=== PATIENT | female | born 1960 | race Caucasian/White ===

== ENCOUNTER 2019-08-31 08:32 | Outpatient (CLI) | payer MEDICARE, SELFPAY ==
--- NOTE | 2019-08-31 08:35 | ECG_ITS ---
Measurements Intervals [place] Rate: 60 P: 50 [place]: 166 QRS: 4 QRSD: 108 T: 92 QT: 411 QTc: 411 Interpretive Statements SINUS RHYTHM LOW QRS VOLTAGE IN PRECORDIAL LEADS BORDERLINE R WAVE PROGRESSION, ANTERIOR LEADS BORDERLINE ST-T WAVE ABNORMALITY- HIGH LATERAL LEADS BASELINE ARTIFACT- I, II, AVR, AVF BORDERLINE ECG Electronically Signed On 08-31-2019 9:17:11 CDT by Franck Tineo D.O.
[2019-08-31 09:17] LABS: Blood Urea Nitrogen 14 mg/dL (7-17); Calcium 8.7 mg/dL (8.4-10.2); Carbon Dioxide 27 mmol/L (22-30); Chloride 103 mmol/L (98-107); Estimated Glomerular Filt Rate 50; Glucose 279 mg/dL (65-105); Potassium 4.1 mmol/L (3.4-5.0); Sodium 137 mmol/L (137-145)
== END 2019-08-31 08:33 | disposition home or self-care (01) ==
LOC: ANHSURGERY 08:35
PROVIDERS: Anesthesiology; PCP Pediatrics; Visit Provider Surgery
DX: E11.9 Type 2 diabetes mellitus without complications (principal); R94.31 Abnormal electrocardiogram [ECG] [EKG]
CPT/HCPCS: 36415; 80048; 93005

== ENCOUNTER 2019-09-04 | Outpatient (CLI) | payer MEDICARE, SELFPAY ==
[2019-09-04 17:13] LABS: SARS-CoV-2 RNA PCR Negative
== END 2019-09-04 00:01 | disposition home or self-care (01) ==
LOC: ANHCOVIDDT
PROVIDERS: PCP Pediatrics; Visit Provider Surgery
DX: Z01.812 Encounter for preprocedural laboratory examination (principal); Z11.59 Encounter for screening for other viral diseases
CPT/HCPCS: 87635; C9803; U0003

== ENCOUNTER 2019-09-06 00:45 | Day surgery (SDC) | payer MEDICARE, SELFPAY ==
[2019-08-28 15:34] VITALS: BMI 29.2
--- NOTE | 2019-09-04 16:30 | PM.SD ---
Same Day Admit/Disch: HPI History of Present Illness Chief complaint: Right Axillary Mass Narrative: Stefani Church is a 59 year old female who was seen in the office for right axillary mass. This was initially thought to be in the upper outer quadrant of the breast. She underwent mammograms of the breasts which were negative. She had an ultrasound of the upper outer quadrant of the right breast which showed a 4 cm lipoma. This has been painful for her and she would like to have it removed. She was seen in the office and by palpation has a lipoma consistent with the ultrasound findings. She is taken to surgery now for excision. [facility] Past Medical History Medical History (Updated 09/06/19 @ 07:50 by John Arriola MD) Anxiety Back pain Blood clot in vein Chronic anticoagulation COPD (chronic obstructive pulmonary disease) COPD (chronic obstructive pulmonary disease) Depression Diabetes DM type 2 (diabetes mellitus, type 2) Fibromyalgia Gastroesophageal reflux disease GERD (gastroesophageal reflux disease) History of blood clots History of diabetes mellitus, type I History of pulmonary embolism HTN (hypertension) Hx of myocardial infarction Hypercholesterolemia Hypothyroidism Mass of axilla EMANUEL (obstructive sleep apnea) CPAP W O2 at 2L HS Pulmonary embolism 05/2009,07/2016 Surgical History Surgical History (Updated 09/06/19 @ 07:50 by John Arriola MD) H/O right heart catheterization 2006 H/O tubal ligation H/O: hysterectomy 2004 History of colonoscopy 2015,2019 History of endoscopy 2019 History of pituitary surgery 2010 Hx of neck surgery 2005 Hx of spinal surgery 4-C5 FUSION S/P excision of lipoma 6x8 abdominal Family History Family History Grandparent Carcinoma of colon Unknown Diabetes mellitus Social History Social History Smoking status: Former smoker Smoking end date: 03/15/79 Alcohol intake: current Substance use: never Gender identity (if verbalized by the patient): Female Same Day Admit/Disch: Med Pre-admit Medications Home Medications Medication Instructions Recorded Confirmed Type albuterol sulfate 2.5 mg INHALATION Q4-6H PRN 07/24/19 09/06/19 History albuterol sulfate 90 mcg/actuation 1 inhalation INHALATION Q4-6H PRN 07/24/19 09/06/19 History breath activated powder inhaler alprazolam 0.25 mg tablet 0.25 mg PO DIRECTED PRN 07/24/19 09/06/19 History benzonatate 100 mg capsule 100 mg PO TID 07/24/19 09/06/19 History blood sugar diagnostic #10 each 07/24/19 07/24/19 History cholecalciferol (vitamin D3) 50 50 mcg PO DAILY 07/24/19 09/06/19 History mcg (2,000 unit) capsule cyclobenzaprine 5 mg tablet 5 mg PO TID PRN 07/24/19 09/06/19 History desmopressin 0.1 mg tablet 0.1 mg PO BID 07/24/19 09/06/19 History ergocalciferol (vitamin D2) 1,250 1,250 mcg PO MONTHLY 07/24/19 09/06/19 History mcg (50,000 unit) capsule esomeprazole magnesium 40 mg 40 mg PO DAILY 07/24/19 09/06/19 History capsule,delayed release gabapentin 600 mg tablet 600 mg PO QID 07/24/19 09/06/19 History hydrocortisone 5 mg tablet 10 mg PO BID 07/24/19 09/06/19 History hydrocortisone sod succinate 100 See Rx Instructions .ROUTE 07/24/19 09/06/19 History mg solution for injection .COMPLEX each insulin syringe-needle U-100 1 mL #10 each 07/24/19 07/24/19 History 31 gauge x /16 ipratropium bromide 17 2 puff INHALATION DAILY 07/24/19 09/06/19 History mcg/actuation HFA aerosol inhaler levothyroxine 75 mcg capsule 75 mcg PO DAILY 07/24/19 09/06/19 History lubiprostone 24 mcg capsule 24 mcg PO DAILY 07/24/19 09/06/19 History metformin 500 mg tablet 1,000 mg PO BID 07/24/19 09/06/19 History multivitamin 1 tablet PO DAILY 07/24/19 09/06/19 History mupirocin 2 % topical ointment 1 applic TOPICAL BID 07/24/19 09/06/19 History nitroglycerin 0.4 mg sublingual 0.4 mg [place]STA
[2019-09-06] VITALS (8 sets, daily range): BP systolic 97–114; BP diastolic 48–70; PULSE 63–75; RESP 12–18; TEMP 36.1–36.4; O2SAT 97–100
[2019-09-06] MEDS: LACTATED RINGERS 1,000 ML 30 ML IV CONT (06:45)
[2019-09-06 06:52] LABS: Glucose Point of Care 237 (65-105)
--- NOTE | 2019-09-06 07:44 | WPDANESEPPF ---
Anes - Initial Pre Proc Eval Procedure: Operation Date: 09/06/19 08:30 Proposed Procedures p Excision Right Axillary Mass - James Monge MD Date/Time: 09/06/19 07:44 Surgeon: James Monge MD Pre Op Diagnosis: Right Axillary Mass Patient Data Age: 59 Gender: F Height: 1.63 m Weight: 77.3 kg Last Vital Signs Temp 36.1 C L 09/06/19 06:39 Pulse 67 09/06/19 06:39 Resp 18 09/06/19 06:39 BP 112/52 L 09/06/19 06:39 Pulse Ox 100 09/06/19 06:39 Allergies Allergy/AdvReac Type Severity Reaction Status Date / Time No Known Allergies Allergy Verified 09/06/19 07:37 Home Medications Medication Instructions Recorded Confirmed Type albuterol sulfate 2.5 mg INHALATION Q4-6H PRN 07/24/19 09/06/19 History albuterol sulfate 90 mcg/actuation 1 inhalation INHALATION Q4-6H PRN 07/24/19 09/06/19 History breath activated powder inhaler alprazolam 0.25 mg tablet 0.25 mg PO DIRECTED PRN 07/24/19 09/06/19 History benzonatate 100 mg capsule 100 mg PO TID 07/24/19 09/06/19 History blood sugar diagnostic #10 each 07/24/19 07/24/19 History cholecalciferol (vitamin D3) 50 50 mcg PO DAILY 07/24/19 09/06/19 History mcg (2,000 unit) capsule cyclobenzaprine 5 mg tablet 5 mg PO TID PRN 07/24/19 09/06/19 History desmopressin 0.1 mg tablet 0.1 mg PO BID 07/24/19 09/06/19 History ergocalciferol (vitamin D2) 1,250 1,250 mcg PO MONTHLY 07/24/19 09/06/19 History mcg (50,000 unit) capsule esomeprazole magnesium 40 mg 40 mg PO DAILY 07/24/19 09/06/19 History capsule,delayed release gabapentin 600 mg tablet 600 mg PO QID 07/24/19 09/06/19 History hydrocortisone 5 mg tablet 10 mg PO BID 07/24/19 09/06/19 History hydrocortisone sod succinate 100 See Rx Instructions .ROUTE 07/24/19 09/06/19 History mg solution for injection .COMPLEX each insulin syringe-needle U-100 1 mL #10 each 07/24/19 07/24/19 History 31 gauge x 5/16 ipratropium bromide 17 2 puff INHALATION DAILY 07/24/19 09/06/19 History mcg/actuation HFA aerosol inhaler levothyroxine 75 mcg capsule 75 mcg PO DAILY 07/24/19 09/06/19 History lubiprostone 24 mcg capsule 24 mcg PO DAILY 07/24/19 09/06/19 History metformin 500 mg tablet 1,000 mg PO BID 07/24/19 09/06/19 History multivitamin 1 tablet PO DAILY 07/24/19 09/06/19 History mupirocin 2 % topical ointment 1 applic TOPICAL BID 07/24/19 09/06/19 History nitroglycerin 0.4 mg sublingual 0.4 mg SUBLINGUAL Q5M PRN 07/24/19 09/06/19 History tablet ondansetron HCl 4 mg tablet 4 mg PO Q8H PRN 07/24/19 09/06/19 History polyethylene glycol 3350 17 17 gm PO DAILY PRN 07/24/19 09/06/19 History gram/dose oral powder potassium chloride 10 mEq 10 meq PO DAILY 07/24/19 09/06/19 History capsule,extended release rivaroxaban 20 mg tablet 20 mg PO DAILY 07/24/19 09/06/19 History ropinirole 0.25 mg tablet 0.25 mg PO HS tablet 07/24/19 09/06/19 History rosuvastatin 40 mg tablet 40 mg PO DAILY 07/24/19 09/06/19 History trazodone 50 mg tablet 100 mg PO HS 07/24/19 09/06/19 History semaglutide [Ozempic] 0.25 mg SUBCUT WEEKLY 08/28/19 09/06/19 History venlafaxine 75 mg PO DAILY 08/28/19 09/06/19 History Laboratory Tests 09/06/19 06:50 POC Capillary Glucose 237 mg/dl H mg/dl (65-105) ECG: Date of Service: 08/31/19 Procedure(s): CA 12 lead EKG Accession Number(s): [id number] cc: ~ Measurements Intervals [place] Rate: 60 P: 50 [place]: 166 QRS: 4 QRSD: 108 T: 92 QT: 411 QTc: 411 Interpretive Statements SINUS RHYTHM LOW QRS VOLTAGE IN PRECORDIAL LEADS BORDERLINE R WAVE PROGRESSION, ANTERIOR LEADS BORDERLINE ST-T WAVE ABNORMALITY- HIGH LATERAL LEADS BASELINE ARTIFACT- I, II, AVR, AVF BORDERL
--- NOTE | 2019-09-06 08:34 | WPDHPUPDATE1 ---
History and Physical Update Update Date/Time: 09/06/19 08:34 History and Physical has been reviewed, including an updated exam of the patient. There are NO changes in the patient's condition. Risks, benefits, and alternatives have been discussed and questions answered. Patient agrees to proceed with procedure.
[2019-09-06] MEDS: ceFAZolin 2 GM/D5W 50 ML 2 GM/50 ML BAG IVPB (08:40)
[2019-09-06] MEDS: BUPIVACAINE/EPINEPHRINE 0.5% 30 ML VIAL INFILTRATE (09:14)
--- NOTE | 2019-09-06 09:19 | SUR.OPER ---
Ebl=5ml
[2019-09-06 09:40] LABS: Glucose Point of Care 157 (65-105)
--- NOTE | 2019-09-06 09:41 | P.OP_ITS ---
Procedure Note - Detailed Date of procedure: 09/06/19 Pre-op diagnosis: Right Axillary Mass Right axillary mass Post-op diagnosis: other (Right axillary lipoma) Procedure performed: Excision 5 x 5 cm right axillary lipoma Description of procedure: Patient was checked in the preoperative holding area. The mass was palpated. She was then taken to surgery and induced into general anesthesia with LMA. The right axilla right arm and shoulder were prepped and draped such that the right arm was mobile and in the field. A hairline incision was proposed and marked on the skin. Local was infiltrated into the skin and the deeper subcutaneous tissues. Incision was made and dissection through the superficial subcutaneous was carried out. We eventually came to the axillary contents. A mobile, soft, fatty mass was found consistent with a lipoma. It was difficult to visually see any difference in in peer ends from this mass and the normal axillary fat. It was a bit thicker. The majority of the mass was located fairly high in the axilla. It was gently dissected using cautery and traction. Cautery was used for hemostasis. This seemed to be the palpable mass. It was completely excised and sent to pathology in formalin. Repalpated the axilla there was another mobile subcutaneous mass lower in the axilla. This may have been part of the other lipoma or separate 1. I went ahead and excised it in the same fashion. It was sent in the same specimen to pathology. The wound was then made meticulously hemostatic with the cautery. Wound was closed with a deep layer closure of 3 0 Monocryl interrupted suture. The skin was closed with subcuticular interrupted 4 O Vicryl skin sutures. Wound was dressed with Exofin surgical adhesive. Patient was awakened and taken to recovery in good condition. Sponge and needle counts were correct x2. Anesthesia: GLMA and local (0.5% Marcaine with epinephrine) Surgeon: James Monge MD Pipe Cleaning Machine Operator: Sari CALLAHAN Estimated blood loss (mL): 5 Drains: No Packing: No Pathology: yes (Right axillary mass, grossly lipoma) Complications: None Condition: stable Disposition: PACU Findings: Right axillary lipoma removed in 2 pieces or possibly two right axillary lipomas.
== END 2019-09-06 11:43 | disposition home or self-care (01) ==
PROVIDERS: PCP Pediatrics; Visit Provider Surgery
PROC: (CPT 38525; principal; 2019-09-06 08:30)
DX: M79.89 Other specified soft tissue disorders (principal); I10 Essential (primary) hypertension; J44.9 Chronic obstructive pulmonary disease, unspecified; E11.9 Type 2 diabetes mellitus without complications; K21.9 Gastro-esophageal reflux disease without esophagitis; I25.2 Old myocardial infarction; E78.00 Pure hypercholesterolemia, unspecified; G47.33 Obstructive sleep apnea (adult) (pediatric); M79.7 Fibromyalgia; F41.8 Other specified anxiety disorders; Z86.711 Personal history of pulmonary embolism; Z86.718 Personal history of other venous thrombosis and embolism; Z79.01 Long term (current) use of anticoagulants; Z79.4 Long term (current) use of insulin; Z79.84 Long term (current) use of oral hypoglycemic drugs; Z87.891 Personal history of nicotine dependence
CPT/HCPCS: 24071; 88304; 88305; C1713; J0690; J2250; J2405; J2704; J7120

== ENCOUNTER 2022-11-02 10:53 | Outpatient (CLI) | payer OTHER, SELFPAY ==
--- NOTE | ~2022-11-02 | MR_ITS ---
EXAMINATION: MR cervical spine wo/w con DATE: 11/02/2022 11:45 INDICATION: Neck pain TECHNIQUE: Magnetic resonance imaging (MRI) of the cervical spine was performed without and with 12 m L Multihance intravenous contrast. Sequences included sagittal T2-weighted FSE, sagittal T2-weighted FS FSE, sagittal T1-weighted FSE, axial T2-weighted FSE, and axial T1-weighted SE. Postcontrast seque nces included sagittal T1-weighted FS FSE, and axial T1-weighted FS SE. COMPARISON: None FINDINGS: Is slight kyphosis of the cervical spine. Anterior spinal fusion with anterior plate and screw fixati on at C4-C5. 1-2 mm anterolisthesis C3 on C4, C5 on C6, C6 and C7 and C7 on T1.Unfused vertebral body heights are normal. C7 hemangioma. Severe disc height loss at C5-C6. Mild disc height loss at C3-C4, C6-C7 and C7-T1. Cord signal intensity is normal with no abnormally enhancing cord lesions identifie d. Visualized cervical soft tissues are unremarkable. The following disc levels are specifically disc ussed: C2-C3: The disc does not extend beyond the endplate margin. There is no uncovertebral joint osteoarth ritis. There is severe bilateral facet joint osteoarthritis. There is mild bilateral neural foraminal stenosis. There is no central canal stenosis. C3-C4: Disc is mildly bulging. There is moderate bilateral uncovertebral joint osteoarthritis. There is severe bilateral facet joint osteoarthritis. There is moderate bilateral neural foraminal stenosis . There is mild central canal stenosis. C4-C5: Disc space is fused. Mild hypertrophic change at the uncovertebral joints. There is mild right facet joint osteoarthritis. Left facet joint is fused with mild hypertrophic change. There is mild b ilateral neural foraminal stenosis. There is no central canal stenosis. C5-C6: Disc is bulging with annular fissure and small central disc extrusion with disc material exten ding up to 3 mm cephalad to the level of the inferior endplate of C5. There is severe bilateral uncov ertebral joint osteoarthritis. There is moderate left and severe right facet joint osteoarthritis. Th ere is mild bilateral neural foraminal stenosis. There is mild central canal stenosis with the disc e xtrusion indenting the ventral surface of the cord. C6-C7: Disc is bulging. There is mild bilateral uncovertebral joint osteoarthritis. There is severe b ilateral facet joint osteoarthritis. There is mild right and moderate left neural foraminal stenosis. There is mild central canal stenosis. C7-T1: Disc is bulging. There is no uncovertebral joint osteoarthritis. There is severe bilateral fac et joint osteoarthritis. There is mild bilateral neural foraminal stenosis. There is mild central can al stenosis. IMPRESSION: 1. No significant change in severe cervical spondylosis with noncemented C4-C5 anterior spinal fusion . Reviewed, dictated and finalized at location A. IMPRESSION: 1. No significant change in severe cervical spondylosis with noncemented C4-C5 anterior spinal fusion.
== END 2022-11-02 10:54 ==
LOC: MICIMG 10:55
PROVIDERS: PCP Pediatrics; Visit Provider Pediatrics
DX: I95.9 Hypotension, unspecified (principal); E11.8 Type 2 diabetes mellitus with unspecified complications; E23.2 Diabetes insipidus; M47.892 Other spondylosis, cervical region
CPT/HCPCS: 72156; A9577

== ENCOUNTER 2023-05-05 11:25 | Outpatient (CLI) | payer MEDICARE, SELFPAY ==
--- NOTE | ~2023-05-05 | MR_ITS ---
EXAMINATION: MR lumbar spine wo con DATE: 05/05/2023 12:00 INDICATION: Lumbar radiculopathy. Low back pain. TECHNIQUE: Magnetic resonance imaging (MRI) of the lumbar spine was performed without intravenous con trast. Sequences included sagittal T2-weighted FSE, sagittal T2-weighted FS FSE, sagittal T1-weighted FSE, and axial T2-weighted FSE. COMPARISON: None FINDINGS: There is 6 degrees levocurvature of lumbar spine. There is 5 mm retrolisthesis of L2 on L3, 3 mm anterolisthesis of L4 on L5, and 4 mm retrolisthesis of L5 on S1. Vertebral body heights are no rmal. There are benign bone islands in T12 and L1. There is severely decreased disc height at T11-T12 , moderately decreased disc height at L2-L3, mildly decreased disc height at L3-L4 and L4-L5, and sev erely decreased disc height at L5-S1. The distal spinal cord signal intensity is normal. The conus me dullaris is at L1. The following disc levels are specifically discussed: L1-L2: The disc is bulging. There is severe right and moderate left facet joint osteoarthritis. There is mild bilateral neural foraminal stenosis. There is mild central canal stenosis. L2-L3: The disc is bulging. There is severe bilateral facet joint osteoarthritis. There is mild bilat eral neural foraminal stenosis. There is mild central canal stenosis. L3-L4: The disc is bulging and has an annular fissure. There is severe bilateral facet joint osteoart hritis. There is mild bilateral neural foraminal stenosis. There is mild central canal stenosis. L4-L5: The disc is bulging and has an annular fissure. There is severe bilateral facet joint osteoart hritis. There is mild bilateral neural foraminal stenosis. There is mild central canal stenosis. L5-S1: The disc is bulging and has an annular fissure. There is severe bilateral facet joint osteoart hritis. There is mild right and moderate left neural foraminal stenosis. There is mild central canal stenosis. IMPRESSION: 1. Severe lumbar spondylosis. Reviewed, dictated and finalized at location E. [facility]
== END 2023-05-05 11:26 ==
LOC: GOSHIMG 11:26
PROVIDERS: PCP Pediatrics
DX: M47.26 Other spondylosis with radiculopathy, lumbar region (principal)
CPT/HCPCS: 72148